=== PATIENT | female | born 1990 | race African-American/Black ===

== ENCOUNTER 2016-11-17 08:15 | Emergency (ER) | payer MEDICAID ==
[~2016-11-17] VITALS: Ht 172.7 cm; Wt 95.9 kg
[~2016-11-17 08:15] MED LIST: HYDR-3138 PO; LISI5TAB7 PO; MIDO5TAB PO
[2016-11-17 09:44] VITALS: BP 137/91
== END 2016-11-17 10:37 | disposition home or self-care (01) ==
LOC: ED 08:56
DX: J20.8 Acute bronchitis due to other specified organisms (principal); I10 Essential (primary) hypertension; Z87.440 Personal history of urinary (tract) infections
CPT/HCPCS: 36415; 71020; 86615; 93005

== ENCOUNTER 2017-01-22 09:37 | Emergency (ER) | payer MEDICAID ==
[~2017-01-22] VITALS: Ht 172.7 cm; Wt 93.7 kg
[2017-01-22 09:39] VITALS: BP 138/96
[2017-01-22] MEDS ORDERED: PROPARACAINE OPHTH 0.5%, 15ML ONE (09:54)
[2017-01-22] MEDS ORDERED: FLUORESCEIN OPHTHALMIC 1 MG STRIP ONE (09:54)
[2017-01-22] MEDS ORDERED: PROPARACAINE OPHTH 0.5%, 15ML EACHEYE ONE (10:00)
[2017-01-22] MEDS ORDERED: FLUORESCEIN OPHTHALMIC 1 MG STRIP EACHEYE ONE (10:00)
== END 2017-01-22 10:20 | disposition home or self-care (01) ==
LOC: ED 10:05
DX: H10.023 Other mucopurulent conjunctivitis, bilateral (principal); I10 Essential (primary) hypertension
CPT/HCPCS: 99283

== ENCOUNTER 2017-01-27 11:02 | Emergency (ER) | payer MEDICAID ==
[~2017-01-27] VITALS: Ht 172.7 cm; Wt 91.5 kg
[2017-01-27 11:07] VITALS: BP 149/77
== END 2017-01-27 12:02 | disposition left against medical advice (07) ==
LOC: ED 12:01
DX: Z53.21 Procedure and treatment not carried out due to patient leaving prior to being seen by health care provider (principal)

== ENCOUNTER 2017-08-22 20:05 | Emergency (ER) | payer MEDICAID ==
[~2017-08-22] VITALS: Ht 170.2 cm; Wt 72.9 kg
[~2017-08-22 20:05] MED LIST changes: -HYDR-3138 PO; +HYDR-3237 PO
[2017-08-22] MEDS ORDERED: SODIUM CHLORIDE 0.9% 1,000 ML IV ONE (20:14)
[2017-08-22] MEDS ORDERED: FAMOTIDINE 20 MG/2 ML ONE (20:30)
[2017-08-22] MEDS ORDERED: ONDANSETRON 2MG/ML, 2ML IVPush ONE (20:30)
[2017-08-22] MEDS ORDERED: ONDANSETRON 2MG/ML, 2ML ONE (20:30)
[2017-08-22] MEDS ORDERED: FAMOTIDINE 20 MG/2 ML IVP ONE (20:30)
[2017-08-22] MEDS ORDERED: SODIUM CHLORIDE 0.9% 1,000ML IVBOLUS ONE (20:30)
[2017-08-22 20:39] LABS: BASOPHILS # (AUTO) 0.02 x10^3/uL (0-0.1); BASOPHILS % (AUTO) 0 % (0-1); EOSINOPHILS # (AUTO) 0.04 x10^3/uL (0-0.4); EOSINOPHILS % (AUTO) 0 % (1-7); LYMPHOCYTES # (AUTO) 1.06 x10^3/uL (1-3.4); LYMPHOCYTES % (AUTO) 12 % (22-44); MD NO; MEAN CORPUSCULAR HGB CONC 34.3 g/dL (32.4-35.8); MEAN CORPUSCULAR VOLUME 90.3 fL (80-100); MEAN PLATELET VOLUME 9.1 fL (7.4-10.4); MONOCYTES # (AUTO) 0.41 x10^3/uL (0.2-0.8); MONOCYTES % (AUTO) 5 % (2-9); NEUTROPHILS # (AUTO) 7.42 x10^3/uL (1.8-6.8); NEUTROPHILS % (AUTO) 83 % (42-75); PLATELET COUNT 347 x10^3/uL (130-400); RED BLOOD COUNT 5.28 x10^6/uL (3.82-5.3); RED CELL DISTRIBUTION WIDTH 12.7 % (9.6-15.2)
[2017-08-22 20:49] LABS: ALANINE AMINOTRANSFERASE 44 U/L (12-78); ALBUMIN 4.7 g/dL (3.4-5.0); ANION GAP 14 mmol/L (5-15); CALCIUM 9.7 mg/dL (8.5-10.1); CHLORIDE 104 mmol/L (98-107); CREATININE 1.02 mg/dL (0.55-1.02)
[2017-08-22 20:54] LABS: ALKALINE PHOSPHATASE 84 U/L (45-117); BILIRUBIN,TOTAL 0.6 mg/dL (0.2-1.0); TOTAL PROTEIN 9.1 g/dL (6.4-8.2)
[2017-08-22 21:08] LABS: CULTURE INDICATED? YES; MICROSCOPIC INDICATED
[2017-08-22] MEDS ORDERED: MAALOX/HYOSCYAMINE/LIDOCAINE 45 ML BTL PO ONE (22:00)
[2017-08-22] MEDS ORDERED: MAALOX/HYOSCYAMINE/LIDOCAINE 45 ML BTL ONE (22:40)
[2017-08-22 22:48] VITALS: BP 124/82
== END 2017-08-22 23:03 | disposition home or self-care (01) ==
LOC: ED 22:57
DX: R10.84 Generalized abdominal pain (principal); R11.2 Nausea with vomiting, unspecified; R19.7 Diarrhea, unspecified
CPT/HCPCS: 36415; 80053; 81001; 83690; 84703; 85025; 87086; 96361; 96374; 96375; 99284; J2405; J7030; S0028

== ENCOUNTER 2018-08-19 19:07 | Emergency (ER) | payer MEDICAID ==
[~2018-08-19] VITALS: Ht 172.7 cm; Wt 85.0 kg
[~2018-08-19 19:07] MED LIST changes: -MIDO5TAB PO; +MIDO5TAB9 PO
--- NOTE | 2018-08-19 19:26 | NUR ---
BIB [facility] WITH C/O FEELING ANXIOUS, DIZZY, N/V, B/L HAND NUMBNESS, AND RIGHT FLANK PAIN. PT RECEIVED IV ZOFRAN AND 2MG VERSED CLOUD ADMINISTRATOR, ST ON 12 LEAD WITH HR-130, 99% R/A, B/P-130/86, FSBS-105. MONITORS APPLIED, PROVIDED WITH WARM BLANKETS, SIDERAILS UP X2, CALL LIGHT WITHIN REACH
[2018-08-19] MEDS ORDERED: ONDANSETRON 2MG/ML, 2ML ONE (19:55)
[2018-08-19] MEDS ORDERED: SODIUM CHLORIDE 0.9% 1,000ML IVBOLUS ONE (20:00)
[2018-08-19] MEDS ORDERED: ONDANSETRON 2MG/ML, 2ML IVPush ONE (20:00)
[2018-08-19] MEDS ORDERED: SODIUM CHLORIDE FLUSH 10ML SYR IVF ONE (20:00)
[2018-08-19 20:01] LABS: BASOPHILS # (AUTO) 0.02 x10^3/uL (0-0.1); BASOPHILS % (AUTO) 0 % (0-1); EOSINOPHILS # (AUTO) 0.01 x10^3/uL (0-0.4); EOSINOPHILS % (AUTO) 0 % (1-7); LYMPHOCYTES # (AUTO) 0.58 x10^3/uL (1-3.4); LYMPHOCYTES % (AUTO) 5 % (22-44); MD NO; MEAN CORPUSCULAR HEMOGLOBIN 32.1 pg (27.0-34.8); MEAN CORPUSCULAR HGB CONC 34.6 g/dL (32.4-35.8); MEAN CORPUSCULAR VOLUME 92.6 fL (80-100); MEAN PLATELET VOLUME 9.2 fL (7.4-10.4); MONOCYTES # (AUTO) 0.34 x10^3/uL (0.2-0.8); MONOCYTES % (AUTO) 3 % (2-9); NEUTROPHILS % (AUTO) 92 % (42-75); PLATELET COUNT 270 x10^3/uL (130-400); RED BLOOD COUNT 5.08 x10^6/uL (3.82-5.3); RED CELL DISTRIBUTION WIDTH 13.1 % (9.6-15.2)
--- NOTE | 2018-08-19 20:10 | NUR ---
PT UP TO RR WITH STEADY GAIT, PROVIDED WITH URINE CUP
[2018-08-19 20:15] LABS: ALANINE AMINOTRANSFERASE 39 U/L (12-78); ALBUMIN 4.5 g/dL (3.4-5.0); ANION GAP 11 mmol/L (5-15); CALCIUM 9.3 mg/dL (8.5-10.1); CHLORIDE 105 mmol/L (98-107); CREATININE 0.92 mg/dL (0.55-1.02)
--- NOTE | 2018-08-19 20:18 | NUR ---
URINE SAMPLE SENT
[2018-08-19 20:19] LABS: ALKALINE PHOSPHATASE 81 U/L (45-117); BILIRUBIN,TOTAL 0.7 mg/dL (0.2-1.0); TOTAL PROTEIN 8.8 g/dL (6.4-8.2)
[2018-08-19] MEDS ORDERED: LORazepam 2 MG/ML, 1ML ONE (20:22)
[2018-08-19] MEDS ORDERED: LORazepam 2 MG/ML, 1ML IVPush ONE (20:30)
--- NOTE | 2018-08-19 20:34 | NUR ---
pt to ct
[2018-08-19 20:41] LABS: CULTURE INDICATED? YES; MICROSCOPIC INDICATED
--- NOTE | 2018-08-19 20:59 | NUR ---
PT RESTING CALMLY, NAD, MONITORS IN PLACE, DENIES NEEDS, CALL LIGHT WITHIN REACH. AWAITING CT RESULT
[2018-08-19 21:38] VITALS: BP 141/92
== END 2018-08-19 21:53 | disposition home or self-care (01) ==
LOC: ED 21:06
DX: R10.84 Generalized abdominal pain (principal); R10.31 Right lower quadrant pain; R11.2 Nausea with vomiting, unspecified; I10 Essential (primary) hypertension; F41.1 Generalized anxiety disorder
CPT/HCPCS: 36415; 74176; 80053; 81001; 83690; 84703; 85025; 87086; 96361; 96374; 96375; 99284; J2060; J2405; J7030

== ENCOUNTER 2019-01-05 14:59 | Emergency (ER) | payer MEDICAID ==
[~2019-01-05] VITALS: Ht 172.7 cm; Wt 88.2 kg
[2019-01-05] MEDS ORDERED: ONDANSETRON 2MG/ML, 2ML IVPush ONE (15:30)
[2019-01-05] MEDS ORDERED: SODIUM CHLORIDE FLUSH 10ML SYR IVF ONE (15:30)
[2019-01-05] MEDS ORDERED: LORazepam 2 MG/ML, 1ML IVPush ONE (15:30)
[2019-01-05] MEDS ORDERED: MORPHINE SULFATE 4 MG/ML, 1ML IVPush PRN (15:30)
[2019-01-05] MEDS ORDERED: FAMOTIDINE 20 MG/2 ML IVP ONE (15:30)
[2019-01-05 15:41] LABS: BASOPHILS # (AUTO) 0.03 x10^3/uL (0-0.1); BASOPHILS % (AUTO) 1 % (0-1); EOSINOPHILS % (AUTO) 2 % (1-7); LYMPHOCYTES # (AUTO) 0.86 x10^3/uL (1-3.4); LYMPHOCYTES % (AUTO) 15 % (22-44); MD NO; MEAN CORPUSCULAR HEMOGLOBIN 32.5 pg (27.0-34.8); MEAN CORPUSCULAR HGB CONC 34.6 g/dL (32.4-35.8); MEAN CORPUSCULAR VOLUME 93.9 fL (80-100); MEAN PLATELET VOLUME 8.6 fL (7.4-10.4); MONOCYTES # (AUTO) 0.44 x10^3/uL (0.2-0.8); MONOCYTES % (AUTO) 8 % (2-9); NEUTROPHILS # (AUTO) 4.39 x10^3/uL (1.8-6.8); NEUTROPHILS % (AUTO) 75 % (42-75); PLATELET COUNT 279 x10^3/uL (130-400); RED BLOOD COUNT 4.68 x10^6/uL (3.82-5.3); RED CELL DISTRIBUTION WIDTH 12.4 % (9.6-15.2)
[2019-01-05] MEDS ORDERED: ONDANSETRON 2MG/ML, 2ML ONE (15:42)
[2019-01-05] MEDS ORDERED: MORPHINE SULFATE 4 MG/ML, 1ML ONE (15:43)
[2019-01-05] MEDS ORDERED: FAMOTIDINE 20 MG/2 ML ONE (15:43)
[2019-01-05] MEDS ORDERED: LORazepam 2 MG/ML, 1ML ONE (15:43)
--- NOTE | 2019-01-05 15:46 | NUR ---
Went to pt room to place PIV and provide medicaiton per EMAR. Pt and gurantonia not in room. Pt transported to ultrasound.
[2019-01-05 15:49] LABS: ALANINE AMINOTRANSFERASE 34 U/L (12-78); ALBUMIN 4.4 g/dL (3.4-5.0); ANION GAP 10 mmol/L (5-15); CALCIUM 9.3 mg/dL (8.5-10.1); CHLORIDE 105 mmol/L (98-107)
--- NOTE | 2019-01-05 15:50 | NUR ---
LATE NOTE ENTRY FOR 152: Pt tearful on gurney guarding abdomen. Pt states, "I ate some [id number] today my co-worker gave me. I don't know if that's what made me sick. I have thrown up ten times since I ate it. I am normally really health, I don't take any meds at home." NADN. Call light within reach. Pt connected to NIBP, continous pulse ox, and surveillance system monitor. Bedrail up x 1 for safety measures. No other needs expresed at this time.
[2019-01-05 15:54] LABS: ALKALINE PHOSPHATASE 79 U/L (45-117); BILIRUBIN,TOTAL 0.5 mg/dL (0.2-1.0); TOTAL PROTEIN 8.4 g/dL (6.4-8.2)
--- NOTE | 2019-01-05 16:55 | NUR ---
Provided report to MAGALY Elizabeth. All questions answered. NADN. No needs expressed. MAGALY Elizabeth to assume care of pt.
[2019-01-05 17:05] LABS: MICROSCOPIC NOT IND
[2019-01-05 17:10] LABS: CULTURE INDICATED? NO
[2019-01-05 17:23] VITALS: BP 180/82
--- NOTE | 2019-01-05 17:24 | NUR ---
PT RESTING IN BED. NADN., NO NEEDS AT THIS TIME.
--- NOTE | 2019-01-05 17:54 | NUR ---
Patient/Caregiver given discharge instructions and they have confirmed that they understand the instructions. Patient ambulatory with steady gait.
== END 2019-01-05 17:56 | disposition home or self-care (01) ==
LOC: ED 15:14
DX: A08.4 Viral intestinal infection, unspecified (principal); F41.1 Generalized anxiety disorder; I10 Essential (primary) hypertension
CPT/HCPCS: 36415; 76830; 80053; 81003; 83690; 84703; 85025; 96374; 96375; 99284; J2060; J2270; J2405; J3490

== ENCOUNTER 2019-01-07 11:07 | Emergency (ER) | payer MEDICAID ==
[~2019-01-07] VITALS: Ht 172.7 cm; Wt 89.2 kg
--- NOTE | 2019-01-07 11:33 | NUR ---
PT ARRIVED TO ROOM 36 AMBULATORY, ESCORTED TO RESTROOM AND UA PROVIDED. PT DRESSED IN GOWN AND ATTACHED TO MONITOR. PT AAO X 4, PT HYPERTENSIVE SBP 148, ROOM AIR. RESTING IN GURNEY COMFORTABLY. PT STATES HX HTN. PT C/O LEFT SIDED WEAKNESS/NUMBESS/PAIN AT TIMES, INTERMITTENT. PT STATES "I THINK ITS THE HIGH BLOOD PRESSURE AGAIN." MD AT BEDSIDE.
[2019-01-07] MEDS ORDERED: LORazepam 1MG TABLET ONE (11:52)
--- NOTE | 2019-01-07 11:57 | NUR ---
PT MEDICATED PER MD ORDER.
--- NOTE | 2019-01-07 11:58 | NUR ---
PT TO CT.
[2019-01-07] MEDS ORDERED: LORazepam 1MG TABLET PO ONE (12:00)
--- NOTE | 2019-01-07 12:16 | NUR ---
PT BACK FROM CT. RESTING IN [facility], CALL LIGHT WITHIN REACH, NAD.
--- NOTE | 2019-01-07 12:25 | NUR ---
ALL RESULTS BACK AT THIS TIME, CHART UP FOR RECHECK.
[2019-01-07 13:05] VITALS: BP 132/71
--- NOTE | 2019-01-07 13:05 | NUR ---
Patient/Caregiver given discharge instructions and they have confirmed that they understand the instructions. Patient ambulatory with steady gait.
== END 2019-01-07 13:07 | disposition home or self-care (01) ==
LOC: ED 13:01
DX: F41.1 Generalized anxiety disorder (principal); R20.0 Anesthesia of skin; I10 Essential (primary) hypertension; Z87.891 Personal history of nicotine dependence
CPT/HCPCS: 70450; 93005; 99284

== ENCOUNTER 2019-02-10 20:55 | Emergency (ER) | payer MEDICAID ==
[~2019-02-10] VITALS: Ht 172.7 cm; Wt 90.0 kg
[2019-02-10 22:51] VITALS: BP 157/101
== END 2019-02-10 23:04 | disposition home or self-care (01) ==
LOC: ED 22:47
DX: A09 Infectious gastroenteritis and colitis, unspecified (principal); R11.2 Nausea with vomiting, unspecified
CPT/HCPCS: 36415; 80053; 83690; 84703; 85025; 99283; Q0162

== ENCOUNTER 2019-07-05 17:23 | Emergency (ER) | payer MEDICAID ==
[~2019-07-05] VITALS: Ht 172.7 cm; Wt 87.9 kg
[~2019-07-05 17:23] MED LIST changes: +HYDR12.517 PO
[2019-07-05 17:28] VITALS: BP 182/108
--- NOTE | 2019-07-05 18:02 | NUR ---
Pt to ER for onset of sharp L sd CP that increases w/ coughing & movement. Pt also vomits when attempting to eat/drink today & was unable to take HTN meds. EKG done in triage, cardiac, NIBP & SPO2 monitors IP. Await ER MD oliver.
[2019-07-05] MEDS ORDERED: ONDANSETRON 2MG/ML, 2ML ONE (18:22)
[2019-07-05] MEDS ORDERED: ONDANSETRON 2MG/ML, 2ML IV ONE (18:30)
[2019-07-05] MEDS ORDERED: SODIUM CHLORIDE 0.9% 1,000ML IVBOLUS ONE (18:30)
[2019-07-05] MEDS ORDERED: SODIUM CHLORIDE FLUSH 10ML SYR IVF ONE (18:30)
--- NOTE | 2019-07-05 18:37 | NUR ---
Urine collected & sent, IV est, labs drawn & sent. Medicated as per emar for nausea. Call light within reach, friend @ BS. No pain meds ordered @ this time, pt states CP/L ABD flank pain 02/02 & is "very uncomfortable". Will request pain meds from ER MD. CXR pending.
[2019-07-05 18:56] LABS: CULTURE INDICATED? YES; MICROSCOPIC INDICATED
--- NOTE | 2019-07-05 19:00 | NUR ---
SAUMYA BS report to MAGALY Vigil.
[2019-07-05 19:03] LABS: BASOPHILS # (AUTO) 0.03 x10^3/uL (0-0.1); BASOPHILS % (AUTO) 1 % (0-1); EOSINOPHILS # (AUTO) 0.05 x10^3/uL (0-0.4); EOSINOPHILS % (AUTO) 1 % (1-7); LYMPHOCYTES # (AUTO) 0.69 x10^3/uL (1-3.4); LYMPHOCYTES % (AUTO) 12 % (22-44); MD NO; MEAN CORPUSCULAR HEMOGLOBIN 31.8 pg (27.0-34.8); MEAN CORPUSCULAR HGB CONC 34.4 g/dL (32.4-35.8); MEAN CORPUSCULAR VOLUME 92.6 fL (80-100); MEAN PLATELET VOLUME 9.4 fL (7.4-10.4); MONOCYTES # (AUTO) 0.34 x10^3/uL (0.2-0.8); MONOCYTES % (AUTO) 6 % (2-9); NEUTROPHILS # (AUTO) 4.62 x10^3/uL (1.8-6.8); NEUTROPHILS % (AUTO) 81 % (42-75); PLATELET COUNT 249 x10^3/uL (130-400); RED CELL DISTRIBUTION WIDTH 12.6 % (9.6-15.2)
[2019-07-05 19:06] LABS: ALBUMIN 4.5 g/dL (3.4-5.0); ANION GAP 9 mmol/L (5-15); CALCIUM 9.1 mg/dL (8.5-10.1); CHLORIDE 105 mmol/L (98-107)
[2019-07-05 19:14] LABS: ALANINE AMINOTRANSFERASE 48 U/L (12-78); ALKALINE PHOSPHATASE 70 U/L (45-117); BILIRUBIN,TOTAL 0.5 mg/dL (0.2-1.0); CREATININE 0.95 mg/dL (0.55-1.02); TOTAL PROTEIN 8.6 g/dL (6.4-8.2); TROPONIN I < 0.015 ng/mL (0.000-0.045)
[2019-07-05] MEDS ORDERED: MORPHINE SULFATE 4 MG/ML, 1ML ONE (19:14)
[2019-07-05] MEDS ORDERED: MORPHINE SULFATE 4 MG/ML, 1ML IVPush PRN (19:30)
--- NOTE | 2019-07-05 20:07 | NUR ---
PT FOR RECHECK BY CESAR OLIVIA
== END 2019-07-05 20:55 | disposition home or self-care (01) ==
LOC: ED 18:16
DX: R00.2 Palpitations (principal); I10 Essential (primary) hypertension; R11.10 Vomiting, unspecified
CPT/HCPCS: 36415; 71046; 80053; 81001; 84484; 84703; 85025; 87086; 93005; 96361; 96374; 96375; 99284; J2270; J2405; J7030

== ENCOUNTER 2019-08-04 14:08 | Emergency (ER) | payer MEDICAID ==
[~2019-08-04] VITALS: Ht 172.7 cm; Wt 87.5 kg
--- NOTE | 2019-08-04 14:17 | NUR ---
NO ANSWER FROM TRIAGE
[2019-08-04] MEDS ORDERED: ONDANSETRON ODT 4 MG ONE (14:26)
[2019-08-04] MEDS ORDERED: ONDANSETRON ODT 4 MG PO ONE (14:30)
--- NOTE | 2019-08-04 15:02 | NUR ---
PULL WORKER: PT TO ROOM FROM LOBBY
--- NOTE | 2019-08-04 15:10 | NUR ---
FIRST CONTACT WITH PT. PT C/O N/V/D STARTING YESTERDAY AFTER EATING [employer]O [employer]. PT'S AOX4. RESPS EVEN AND UNLABORED. BP/SPO2 MONITORS IN PLACE. CALL LIGHT WITHIN REACH. EDMD AT BEDSIDE TO EVALUATE AT THIS TIME.
[2019-08-04] MEDS ORDERED: SODIUM CHLORIDE 0.9% 1,000ML IVBOLUS ONE (15:30)
[2019-08-04] MEDS ORDERED: ONDANSETRON 2MG/ML, 2ML IVPush ONE (15:30)
[2019-08-04 15:35] LABS: BASOPHILS % (AUTO) 0 % (0-1); EOSINOPHILS # (AUTO) 0.05 x10^3/uL (0-0.4); EOSINOPHILS % (AUTO) 1 % (1-7); LYMPHOCYTES # (AUTO) 0.45 x10^3/uL (1-3.4); LYMPHOCYTES % (AUTO) 9 % (22-44); MD NO; MEAN CORPUSCULAR HEMOGLOBIN 31.8 pg (27.0-34.8); MEAN CORPUSCULAR HGB CONC 34.6 g/dL (32.4-35.8); MEAN CORPUSCULAR VOLUME 91.9 fL (80-100); MEAN PLATELET VOLUME 8.9 fL (7.4-10.4); MONOCYTES # (AUTO) 0.18 x10^3/uL (0.2-0.8); MONOCYTES % (AUTO) 3 % (2-9); NEUTROPHILS # (AUTO) 4.49 x10^3/uL (1.8-6.8); NEUTROPHILS % (AUTO) 87 % (42-75); PLATELET COUNT 251 x10^3/uL (130-400); RED BLOOD COUNT 4.77 x10^6/uL (3.82-5.3); RED CELL DISTRIBUTION WIDTH 12.8 % (9.6-15.2)
[2019-08-04] MEDS ORDERED: ONDANSETRON 2MG/ML, 2ML ONE (15:37)
--- NOTE | 2019-08-04 15:39 | NUR ---
PT MNEDICATED PER EMAR. NS INFUSING AT THIS TIME. PT TOLERATED WELL.
[2019-08-04 15:41] LABS: ALANINE AMINOTRANSFERASE 43 U/L (12-78); ALBUMIN 4.2 g/dL (3.4-5.0); ANION GAP 6 mmol/L (5-15); CALCIUM 9.2 mg/dL (8.5-10.1); CHLORIDE 111 mmol/L (98-107); CREATININE 0.85 mg/dL (0.55-1.02)
[2019-08-04 15:46] LABS: ALKALINE PHOSPHATASE 77 U/L (45-117); BILIRUBIN,TOTAL 0.5 mg/dL (0.2-1.0); TOTAL PROTEIN 8.4 g/dL (6.4-8.2)
[2019-08-04 16:23] VITALS: BP 159/105
--- NOTE | 2019-08-04 16:48 | NUR ---
Patient given discharge instructions and they have confirmed that they understand the instructions.
== END 2019-08-04 16:50 | disposition home or self-care (01) ==
LOC: ED 16:44
DX: R11.2 Nausea with vomiting, unspecified (principal); R19.7 Diarrhea, unspecified; R51 Headache; R07.89 Other chest pain; I10 Essential (primary) hypertension
CPT/HCPCS: 36415; 80053; 83690; 84703; 85025; 96361; 96374; 99283; J2405; J7030; Q0162

== ENCOUNTER 2020-01-01 02:54 | Emergency (ER) | payer MEDICAID ==
[~2020-01-01] VITALS: Ht 172.7 cm; Wt 86.5 kg
[2020-01-01 04:01] VITALS: BP 182/102
== END 2020-01-01 04:17 ==
LOC: ED 03:15
DX: I10 Essential (primary) hypertension (principal); Z76.0 Encounter for issue of repeat prescription; I21.9 Acute myocardial infarction, unspecified
CPT/HCPCS: 93005; 99283

== ENCOUNTER 2020-03-24 08:30 | Emergency (ER) | payer MEDICAID ==
[~2020-03-24] VITALS: Ht 172.7 cm; Wt 85.6 kg
--- NOTE | 2020-03-24 09:05 | NUR ---
first contact with pt. pt c/o taylor. pt stated"i can't sleep for 3 days. i don't have any bp meds at home as well" pt denies n/v/vision change at this time. pt's aox4. resps even and unlabored. bp/spo2 monitors in place. call light within reach. pa at bedside evaluating at this time.
[2020-03-24] MEDS ORDERED: KETOROLAC 30 MG/1 ML ONE (09:13)
[2020-03-24] MEDS ORDERED: METOCLOPRAMIDE 5 MG/ML, 2ML ONE (09:13)
[2020-03-24] MEDS ORDERED: LORazepam 2 MG/ML, 1ML ONE (09:14)
[2020-03-24] MEDS ORDERED: METOCLOPRAMIDE 5 MG/ML, 2ML IVPush ONE (09:30)
[2020-03-24] MEDS ORDERED: KETOROLAC 30 MG/1 ML IVPush ONE (09:30)
[2020-03-24] MEDS ORDERED: SODIUM CHLORIDE 0.9% 1,000ML IVBOLUS ONE (09:30)
[2020-03-24] MEDS ORDERED: LORazepam 2 MG/ML, 1ML IVPush ONE (09:30)
--- NOTE | 2020-03-24 09:31 | NUR ---
piv est on l hand with no complications. pt medicated per emar. ns infusing at this time. pt tolerated well.
--- NOTE | 2020-03-24 10:35 | NUR ---
pt resting in [facility]. resps even and unlabored. awaiting dc.
[2020-03-24 10:52] VITALS: BP 163/94
--- NOTE | 2020-03-24 10:59 | NUR ---
Patient given discharge instructions and they have confirmed that they understand the instructions. Patient ambulatory with steady gait.
== END 2020-03-24 11:00 | disposition home or self-care (01) ==
LOC: ED 09:37
DX: F51.01 Primary insomnia (principal); R51 Headache; I10 Essential (primary) hypertension; Z76.0 Encounter for issue of repeat prescription; Z87.891 Personal history of nicotine dependence
CPT/HCPCS: 96361; 96374; 96375; 99284; J1885; J2060; J2765; J7030

== ENCOUNTER 2020-12-15 08:38 | Emergency (ER) | payer MEDICAID ==
[~2020-12-15] VITALS: Ht 172.7 cm; Wt 96.6 kg
--- NOTE | 2020-12-15 08:58 | NUR ---
CP x3 hours, associated SOB. Hx of HTN no meds x1 month. PT TO ROOM WITH STEADY GAIT. ATTACHED TO MONITORS. VSS. SINUS TACH ON MONITOR. POSTIONED TO COMFORT IN BED. PT OBSERVED TO BE ANXIOUS. FIDGITY IN BED AND REPEATLY ASKING FOR NEW MASK AND WATER. AWAITING ORDRES.
[2020-12-15] MEDS ORDERED: KETOROLAC 30 MG/1 ML IVPush ONE (10:00)
[2020-12-15] MEDS ORDERED: SODIUM CHLORIDE FLUSH 10ML SYR IVF ONE (10:00)
[2020-12-15] MEDS ORDERED: SODIUM CHLORIDE 0.9% 1,000 ML IV ONE (10:00)
[2020-12-15] MEDS ORDERED: ONDANSETRON 2MG/ML, 2ML ONE (10:19)
[2020-12-15] MEDS ORDERED: KETOROLAC 30 MG/1 ML ONE (10:19)
[2020-12-15 10:25] LABS: BASOPHILS % (AUTO) 1 % (0-1); EOSINOPHILS % (AUTO) 4 % (1-7); LYMPHOCYTES % (AUTO) 13 % (22-44); MEAN CORPUSCULAR HEMOGLOBIN 31.8 pg (27.0-34.8); MEAN CORPUSCULAR HGB CONC 35.3 g/dL (32.4-35.8); MEAN PLATELET VOLUME 8.7 fL (7.4-10.4); MONOCYTES % (AUTO) 7 % (2-9); NEUTROPHILS % (AUTO) 75 % (42-75); PLATELET COUNT 204 x10^3/uL (130-400); RED BLOOD COUNT 4.62 x10^6/uL (3.82-5.3); RED CELL DISTRIBUTION WIDTH 13.1 % (9.6-15.2)
[2020-12-15] MEDS ORDERED: ONDANSETRON 2MG/ML, 2ML IVPush ONE (10:30)
--- NOTE | 2020-12-15 10:31 | NUR ---
pt medicated per emar. vss. geovannyn.
[2020-12-15 10:33] LABS: ALANINE AMINOTRANSFERASE 42 U/L (12-78); ALBUMIN 3.7 g/dL (3.4-5.0); ANION GAP 7 mmol/L (5-15); CALCIUM 8.7 mg/dL (8.5-10.1); CHLORIDE 106 mmol/L (98-107); CREATININE 0.87 mg/dL (0.55-1.02)
[2020-12-15 10:51] LABS: ALKALINE PHOSPHATASE 94 U/L (45-117); BILIRUBIN,TOTAL 0.5 mg/dL (0.2-1.0); TOTAL PROTEIN 8.1 g/dL (6.4-8.2); TROPONIN I < 0.015 ng/mL (0.000-0.045)
[2020-12-15 11:18] VITALS: BP 140/88
--- NOTE | 2020-12-15 12:13 | NUR ---
Patient given discharge instructions and they have confirmed that they understand the instructions. Patient ambulatory with steady gait. NAD, all questions answered appropriately, denies additional needs at this time. No personal belongings left in room after discharge.
== END 2020-12-15 12:06 | disposition home or self-care (01) ==
LOC: ED 10:44
DX: R06.00 Dyspnea, unspecified (principal); R07.89 Other chest pain; Z72.9 Problem related to lifestyle, unspecified; R00.0 Tachycardia, unspecified; I10 Essential (primary) hypertension
CPT/HCPCS: 36415; 71045; 80053; 84484; 84703; 85025; 85379; 93005; 96361; 96374; 96375; 99285; J1885; J2405; J7030